=== PATIENT | male | born 1980 | race Two or more races ===

== ENCOUNTER 2018-06-05 12:05 | Emergency (ER) | payer BC ==
[~2018-06-05] VITALS: Ht 172.7 cm; Wt 77.6 kg
[2018-06-05 12:14] VITALS: BP 159/105
== END 2018-06-05 14:05 | disposition home or self-care (01) ==
LOC: ER 12:06
DX: S62.337A Displaced fracture of neck of fifth metacarpal bone, left hand, initial encounter for closed fracture (principal); I10 Essential (primary) hypertension; F12.90 Cannabis use, unspecified, uncomplicated; W22.8XXA Striking against or struck by other objects, initial encounter; Y93.89 Activity, other specified; Y92.89 Other specified places as the place of occurrence of the external cause; Y99.8 Other external cause status
CPT/HCPCS: 29105; 73130; 99284; A6449

== ENCOUNTER 2018-06-19 10:37 | Outpatient (CLI) | payer BC ==
[2018-06-19 10:32] VITALS: BP 159/100
== END 2018-06-19 11:17 | disposition home or self-care (01) ==
LOC: ORTHO 10:37
PROVIDERS: ATTEND Nurse Practitioner Family
DX: S62.367A Nondisplaced fracture of neck of fifth metacarpal bone, left hand, initial encounter for closed fracture (principal); F12.90 Cannabis use, unspecified, uncomplicated; Z72.89 Other problems related to lifestyle; X58.XXXA Exposure to other specified factors, initial encounter; Y93.89 Activity, other specified; Y92.89 Other specified places as the place of occurrence of the external cause; Y99.8 Other external cause status
CPT/HCPCS: 73130; 99213

== ENCOUNTER 2018-07-10 10:29 | Outpatient (CLI) | payer BC ==
[2018-07-10 10:29] VITALS: BP 154/94
== END 2018-07-10 10:51 | disposition home or self-care (01) ==
LOC: ORTHO 10:29
PROVIDERS: ATTEND Nurse Practitioner Family
DX: S62.367D Nondisplaced fracture of neck of fifth metacarpal bone, left hand, subsequent encounter for fracture with routine healing (principal); Z72.89 Other problems related to lifestyle; X58.XXXD Exposure to other specified factors, subsequent encounter
CPT/HCPCS: 73130; 99213